=== PATIENT | female | born 1950 | race Two or more races ===

== ENCOUNTER 2020-03-24 20:43 | Emergency (ER) | payer OTHER ==
[~2020-03-24] VITALS: Ht 152.4 cm; Wt 95.3 kg
[2020-03-24 20:44] VITALS: BP 156/91; Ht 152.4 cm; Wt 95.3 kg
== END 2020-03-24 22:01 | disposition left against medical advice (07) ==
LOC: ED 20:43
DX: Z53.21 Procedure and treatment not carried out due to patient leaving prior to being seen by health care provider (principal)